=== PATIENT | male | born 1985 | race Caucasian/White ===

== ENCOUNTER 2021-07-21 11:56 | Emergency (ER) | payer SELFPAY ==
[2021-07-21 12:02] VITALS: BP 144/98; PULSE 101; RESP 16; TEMP 36.6; O2SAT 98
--- NOTE | 2021-07-21 12:02 | ED.SKABFB ---
HPI - Skin/Abscess/Foreign Bdy General Chief complaint: Skin/Abscess/Foreign Body Stated complaint: cyst on neck Time Seen by Provider: 07/21/21 12:00 Source: patient and RN notes reviewed History of Present Illness HPI narrative: Patient is a 36-year-old male who presents the urgent care with complaints of a recurrent cyst on the neck. Patient states that it started to inflamed 2 weeks ago and is now painful with eating. Patient states that he saw specialist in the past and they told him that it was infection if it becomes swollen and inflamed . Patient denies any use of [id number] medication. States that it inflames approximately every 6 months. Denies of any fever, nausea or vomiting. No other acute complaints. No acute distress noted. Patient read the plan of care. Some parts of this dictation were generated by voice recognition software and may contain typographical and/or grammatical inaccuracies. Related Data Allergies Allergy/AdvReac Type Severity Reaction Status Date / Time No Known Allergies Allergy Verified 07/21/21 12:14 Review of Systems Review of Systems: CONSTITUTIONAL: Denies fever, chills, or sweats. EYES: Denies visual changes, redness, or discharge. ENT: Denies rhinorrhea, congestion, sore throat, or otalgia. CARDIOVASCULAR: Denies chest pain, palpitations, or edema. RESPIRATORY: Denies cough or dyspnea. GASTROINTESTINAL: Denies abdominal pain, nausea, vomiting, or diarrhea. GENITOURINARY: Denies dysuria or hematuria. SKIN: Reports of a recurrent cyst on the neck MUSCULOSKELETAL: Denies back pain, joint pain, or myalgia. NEUROLOGIC: Denies headache, numbness, or weakness. All other systems reviewed are negative, except as documented in HPI. PMFSH Comments At the time of my signature, I reviewed and agree with the nursing past medical, surgical, social, and family history. There is no relevant family history pertinent to the patient complaint. Exam Narrative: GENERAL: This is a well-nourished, well-developed patient, in no apparent distress. HEAD: normocephalic, atraumatic. EYES: PERRL. Sclera clear/white. Vision is grossly intact. EARS: External ears normal NOSE: External nose normal with no obvious nasal discharge, nares without redness, no rhinorrhea. THROAT: Mucous membranes moist NECK: Neck supple CARDIOVASCULAR: Regular rate and rhythm without murmurs, gallops, or rubs. RESPIRATORY: Clear to auscultation. Breath sounds equal bilaterally. No wheezes, rales, or rhonchi. SKIN: Sebaceous cyst noted to the anterior aspect of the neck with mild tenderness measuring approximately 4 x 4 cm, fluctuant NEURO: awake, alert, and oriented to person, place and time. There were no obvious focal neurologic abnormalities. EXTREMITIES: No clubbing, cyanosis, or edema. Course Course Level of Care: Express Care Visit Vital Signs Vital signs: Vital Signs Temperature 97.9 F 07/21/21 12:02 Pulse Rate 101 H 07/21/21 12:02 Respiratory Rate 16 07/21/21 12:02 Blood Pressure 144/98 H 07/21/21 12:02 Pulse Oximetry 98 07/21/21 12:02 Temperature 97.9 F 07/21/21 12:02 Pulse Rate 101 H 07/21/21 12:02 Respiratory Rate 16 07/21/21 12:02 Blood Pressure 144/98 H 07/21/21 12:02 Pulse Oximetry 98 07/21/21 12:02 Reviewed-patient is informed that they may have pre-hypertension or hypertension based on a blood pressure reading in the department. I recommend the patient call the primary care provider listed on their discharge instructions or a physician of their choice this week to arrange follow-up for further evaluation of possible pre-hypertension or hypertension. MDM - Skin/Abscess/Foreign Bdy MDM Narrative Medical decision making narrative: Educated the patient on sebaceous cyst. The majority of the time they are not infectious but the cyst does need to be removed because of its location and its recurrent inflammatory process. Advised patient to complete the antibiotic regimen as prescri
== END 2021-07-21 12:25 | disposition home or self-care (01) ==
PROVIDERS: Emergency Provider Nurse Practitioner Family
DX: L72.3 Sebaceous cyst (principal)
CPT/HCPCS: 99213; G0463

== ENCOUNTER 2023-01-19 12:35 | Emergency (ER) | payer SELFPAY ==
--- NOTE | 2023-01-19 12:36 | ED.MALEGU ---
HPI - Male Genitourinary General Chief complaint: Urogenital-Male Stated complaint: blood in urine Time Seen by Provider: 01/19/23 12:35 Source: patient Mode of arrival: ambulatory Limitations: no limitations History of Present Illness HPI Narrative: Yoseph is a 37-year-old male patient presenting to the clinic today with complaints of blood in his urine this morning. He reports no fever or chills. Denies any concern for any sexually transmitted infection. States he has not had intercourse for over 1 year. Denies penile discharge or painful ejaculation. No urgency, hesitancy, or abdominal pain. States he is just having burning with urination and noticed some blood in his urine this morning. Denies any flank pain. No history of kidney stones or prostatitis. Related Data Allergies Allergy/AdvReac Type Severity Reaction Status Date / Time No Known Allergies Allergy Verified 01/19/23 12:43 Review of Systems Review of Systems: Pertinent positives per HPI. Patient denies any fever, chills, rash, headache, visual changes, dizziness, cough, runny nose, sore throat, shortness of breath, chest pain, palpitations, nausea, vomiting, diarrhea, constipation, abdominal pain. PMFSH Comments At the time of my signature, I reviewed and agree with the nursing past medical, surgical, social, and family history. There is no relevant family history pertinent to the patient complaint. Exam Narrative: General: Well-developed, well nourished, in no apparent distress. Head: Normocephalic, atraumatic. Cardio: Regular rate and rhythm, s1 and s2 normal, no murmur appreciated. Resp: Clear to auscultation bilaterally, no rhonchi, rales, wheezing or rubs. Abdomen: Soft, pliable, bowel sounds present in all quadrants, non-tender to palpation, no organomegly, no CVAT tenderness. Course Course Emergency Course: Portions of this record may have been created with voice recognition software. Level of Care: Express Care Visit Vital Signs Vital signs: Vital signs reviewed MDM - Male Genitourinary MDM Narrative Medical decision making narrative: At the time of visit patient is resting comfortably on the exam table. Urinalysis was performed and shows a trace of protein otherwise normal. I suspect patient has dysuria possibly from concentrated urine. Supportive measures were discussed with the patient he voiced understanding discharge instructions agrees to treatment plan. We will send urine for culture. Differential Diagnosis Differential diagnosis: Likely urinary tract infection, urethritis, epididymitis, prostatitis, inguinal hernia and other (Sexually transmitted infection, dehydration) Discharge Plan Discharge Clinical Impression: Dysuria Patient Disposition: Home, Self-Care Condition: Stable Instructions: Antibiotic Form, Dysuria (ED) Additional Instructions: UA shows 1+ protein but does not show any sign of infection or blood. We will send for culture Increase fluids and stay well hydrated Avoid tub baths If sexually active- pee before and after intercourse. Wear cotton underwear Avoid tight clothing up against the genitals Follow up with your PCP in 1 week if symptoms persist. Follow-up/Referrals: UNKNOWN,DOCTOR [Non-Staff] - Time of Disposition: 12:56 Quality NIHSS Nursing Documentation ED NIHSS nursing documentation: reviewed/agree
[2023-01-19 12:40] VITALS: BP 118/87; PULSE 93; RESP 16; TEMP 36.4; O2SAT 98
== END 2023-01-19 13:00 | disposition home or self-care (01) ==
PROVIDERS: Emergency Provider Nurse Practitioner Family
DX: R30.0 Dysuria (principal)
CPT/HCPCS: 81003; 87086; 87088; 99213; G0463

== ENCOUNTER 2023-03-06 19:00 | Emergency (ER) | payer SELFPAY ==
[2023-03-06 19:05] VITALS: BP 110/76; PULSE 100; RESP 18; TEMP 37.1; O2SAT 98
[2023-03-06 19:11] VITALS: BP 110/76; PULSE 100; RESP 18; TEMP 37.1; O2SAT 98
--- NOTE | 2023-03-06 19:13 | ED.URI ---
HPI - URI/Sore Throat General Chief Complaint: Upper Respiratory Infection Stated Complaint: cough/throat/sob History of Present Illness HPI Narrative: Patient presents with sinus congestion and pressure and cough. Cough is productive at time but no shortness of breath and no chest pain. Patient unsure if he has been running a fever and has been not been taking anything [id number] for his symptoms. Patient does report a history of asthma and is a long-time cigarette smoker of 1 pack a day. Related Data Allergies Allergy/AdvReac Type Severity Reaction Status Date / Time No Known Allergies Allergy Verified 01/19/23 12:43 Review of Systems Review of Systems: CONSTITUTIONAL: Denies chills, or sweats. Reports fever and generalized body aches EYES: Denies visual changes, redness, or discharge. ENT: Denies otalgia. Reports nasal congestion runny nose and sore throat CARDIOVASCULAR: Denies chest pain, palpitations, or edema. RESPIRATORY: Denies dyspnea. Reports occasional cough GASTROINTESTINAL: Denies abdominal pain, nausea, vomiting, or diarrhea. GENITOURINARY: Denies dysuria or hematuria. SKIN: Denies rash or itching. MUSCULOSKELETAL: Denies back pain, joint pain, or myalgia. Reports generalized body aches NEUROLOGIC: Denies headache, numbness, or weakness. PSYCHIATRIC: Denies anxiety or depression. PMFSH Comments At time of signature, agree with nursing past medical, surgical, social and family history. There is no relevant family history pertinent to the presenting complaint Exam Narrative: The patient is a well-developed, well-nourished in no acute distress. SKIN: Skin is warm and dry without erythema, swelling or exudate. There is good turgor. No tenting. HEAD: Atraumatic. Normocephalic. No temporal or scalp tenderness. EYES: Moist and bright. Sclera and conjunctivae normal. No discharge. PERRLA. Extraocular motions intact. Gross visual acuity intact. EARS: Pinna is normal shape and contour. Clear external auditory canals. TM pearly johnson with good cone of light, no erythema or suppuration. Bilateral cerumen noted no gross hearing deficit. NOSE: pink, moist mucosa with good air movement. Clear rhinorrhea without nasal flaring. Septum midline. Moderate maxillary sinus tenderness Mouth: moist mucous membranes. THROAT; mild erythema noted to posterior oropharynx with moderate postnasal drainage. Without exudate or ulceration.. Uvula midline. Normal movement of soft palate. NECK: Supple and nontender with full range of motion without discomfort. No meningeal signs. LUNGS: Equal and bilateral breath sounds with wheezes and rhonchi. No respiratory distress CHEST: The chest wall is without retractions or use of accessory muscles. HEART: Has a regular rate and rhythm without murmur, gallops, click or rub. ABDOMEN: Soft, nontender with positive active bowel sounds. No rebound tenderness. EXTREMITIES: Without cyanosis, clubbing or edema. Equal 2+ distal pulses and 2 second capillary refill noted. NEUROLOGIC: alert, active, . The patient moves all extremities with normal muscle strength. Normal muscle tone is noted. Normal coordination is noted. NO focal neurological findings noted. Course Course Level of Care: Express Care Visit Vital Signs Vital signs: Vital Signs Temperature 37.1 C 03/06/23 19:05 Pulse Rate 100 03/06/23 19:05 Respiratory Rate 18 03/06/23 19:05 Blood Pressure 110/76 03/06/23 19:05 Pulse Oximetry 98 03/06/23 19:05 Oxygen Delivery Room Air 03/06/23 19:05 Temperature 37.1 C 03/06/23 19:11 Pulse Rate 100 03/06/23 19:11 Respiratory Rate 18 03/06/23 19:11 Blood Pressure 110/76 03/06/23 19:11 Pulse Oximetry 98 03/06/23 19:11 Oxygen Delivery Room Air 03/06/23 19:11 Discharge Plan Discharge Clinical Impression: Bronchitis, Sinusitis, acute maxillary Patient Disposition: Home, Self-Care Condition: Stable Instructions: Antibiotic Form, Acut
== END 2023-03-06 19:20 | disposition home or self-care (01) ==
PROVIDERS: Emergency Provider Nurse Practitioner Family
DX: J40 Bronchitis, not specified as acute or chronic (principal); J01.00 Acute maxillary sinusitis, unspecified; F17.210 Nicotine dependence, cigarettes, uncomplicated
CPT/HCPCS: 99213; G0463

== ENCOUNTER 2023-05-12 08:44 | Emergency (ER) | payer BC, SELFPAY ==
[2023-05-12 08:49] VITALS: BP 115/99; PULSE 100; RESP 20; TEMP 37.2; O2SAT 97
--- NOTE | 2023-05-12 08:50 | ED.URI ---
HPI - URI/Sore Throat General Chief Complaint: Upper Respiratory Infection Stated Complaint: cough/sob Source: patient and RN notes reviewed Mode of arrival: ambulatory Limitations: no limitations History of Present Illness HPI Narrative: Patient is a 38-year-old male who complains of ongoing cough and intermittent wheezing. Patient states that the wheezing increases when he lays down. Patient states that he was seen here on March 06 and diagnosed with bronchitis. Patient states that he has had an ongoing cough since that time. The cough is productive with green and white sputum. He also reports ongoing nasal congestion and drainage since that time. He denies recent fevers. Denies chest pain or shortness of breath at this time. He reports history of asthma and states that he is a daily smoker. He states that he has no medications for his asthma as he does not currently have a primary care physician. His respirations are unlabored at this time. He does not appear in any acute distress. Related Data Allergies Allergy/AdvReac Type Severity Reaction Status Date / Time No Known Allergies Allergy Verified 05/12/23 09:07 Review of Systems Review of Systems: CONSTITUTIONAL: Denies fever, chills, or sweats. EYES: Denies visual changes, redness, or discharge. ENT: Denies otalgia and sore throat. Reports nasal congestion and drainage. CARDIOVASCULAR: Denies chest pain, palpitations, or edema. RESPIRATORY: Reports cough and wheezing. GASTROINTESTINAL: Denies abdominal pain, nausea, vomiting, or diarrhea. GENITOURINARY: Denies dysuria or hematuria. SKIN: Denies rash or itching. MUSCULOSKELETAL: Denies back pain, joint pain, or myalgia. NEUROLOGIC: Denies headache, numbness, or weakness. Pertinent positives per HPI. PMFSH Comments At the time of my signature, I reviewed and agree with the nursing past medical, surgical, social, and family history. There is no relevant family history pertinent to the patient complaint. Exam Narrative: GENERAL: This is a well-nourished, well-developed patient, in no apparent distress. HEAD: normocephalic, atraumatic. EYES: Sclera clear/white. Vision is grossly intact. EARS: External ears normal.. Hearing grossly intact. NOSE: External nose normal. Moderate congestion THROAT: Mucous membranes moist, posterior pharynx clear. NECK: Neck supple, non-tender without lymphadenopathy, masses or thyromegaly. CARDIOVASCULAR: Regular rate and rhythm without murmurs, gallops, or rubs. RESPIRATORY: Diffuse bilateral wheezes with expiration. GASTROINTESTINAL: Abdomen soft, non-tender, nondistended. Bowel sounds are active. No hepato-splenomegaly, or palpable masses. No guarding. SKIN: warm, intact with no suspicious lesions or rash, good texture and turgor. NEURO: awake, alert, and oriented to person, place and time. There were no obvious focal neurologic abnormalities. Course Course Level of Care: Express Care Visit Vital Signs Vital signs: Vital Signs Temperature 98.9 F 05/12/23 08:49 Pulse Rate 100 05/12/23 08:49 Respiratory Rate 20 05/12/23 08:49 Blood Pressure 115/99 H 05/12/23 08:49 Pulse Oximetry 97 05/12/23 08:49 Oxygen Delivery Room Air 05/12/23 08:49 Temperature 98.9 F 05/12/23 08:49 Pulse Rate 100 05/12/23 08:49 Respiratory Rate 20 05/12/23 08:49 Blood Pressure 115/99 H 05/12/23 08:49 Pulse Oximetry 97 05/12/23 08:49 Oxygen Delivery Room Air 05/12/23 08:49 Reviewed MDM - URI/Sore Throat MDM Narrative Medical decision making narrative: Do not smoke. Avoid smoke of any kind. May use a humidifier in the bedroom. Get plenty of fluids and rest. Take steroids as directed. Use your inhaler every 4-6 hours if needed. Follow up with your MD in 2-5 days. Go to the ER with any new or worsening symptoms. Go to the ER for any new or worsening symptoms. Avoid smoking/second-hand smoke. Continue to take Tylenol or Motrin for
== END 2023-05-12 09:10 | disposition home or self-care (01) ==
PROVIDERS: Emergency Provider Nurse Practitioner
DX: J45.21 Mild intermittent asthma with (acute) exacerbation (principal); J01.90 Acute sinusitis, unspecified
CPT/HCPCS: 99213; G0463

== ENCOUNTER 2023-05-13 18:21 | Emergency (ER) | payer BC, SELFPAY ==
[2023-05-13 18:26] VITALS: BP 138/97; PULSE 62; RESP 16; TEMP 36.7; O2SAT 99
--- NOTE | 2023-05-13 18:31 | ED.URI ---
HPI - URI/Sore Throat General Chief Complaint: Upper Respiratory Infection Stated Complaint: Dizziness/Vomiting Time Seen by Provider: 05/13/23 18:45 Source: patient, RN notes reviewed and old records reviewed Mode of arrival: ambulatory Limitations: no limitations History of Present Illness HPI Narrative: 38-year-old male who presents Express Care with complaints of dizziness at work today and boss wants him to get checked out. Patien reports that he was seen yesterday in clinic ad diagnosed with asthma exacerbation. Patient states that he was seen about a month ago and treated for Bronchitis but never completely got well. Patient states that he has used his inhaler about 10 times today because of his cough and congestion and tightness of chest.Patient denies any fevers chills or sweats, denies any body aches. states that he has not smoked any cigarettes today. MD elicited complaint: cough and other (Dizziness) Pertinent past history: asthma Description of mucous: clear and green Exacerbating factors: exertion Treatments prior to arrival: other (inhaler, ) Related Data Allergies Allergy/AdvReac Type Severity Reaction Status Date / Time No Known Allergies Allergy Verified 05/13/23 18:24 Review of Systems Review of Systems: CONSTITUTIONAL: Denies malaise, chills, sweats, or fever. EYES: Denies visual changes, redness, or discharge. ENT: Reports rhinorrhea, congestion, sinus pain, no otalgia and no sore throat. CARDIOVASCULAR: Denies chest pain, palpitations, or edema. RESPIRATORY: Reports cough.? Denies dyspnea, reports tightness in chest with breathing. GASTROINTESTINAL: Denies abdominal pain, nausea, vomiting, diarrhea SKIN: Denies rash or itching. MUSCULOSKELETAL: Denies myalgia. NEUROLOGIC: Denies headache.states dizziness All systems reviewed & are unremarkable except as noted in HPI and below PMFSH Past Medical History Medical History (Updated 05/15/23 @ 10:24 by Lianet Junior NP) Asthma Bronchitis Social History Social History (Updated 05/15/23 @ 10:25 by Lianet Junior NP) Smoking packs per day: 0.5 Smoking cigarettes per day: 10.0 Smoking status: Current every day smoker Tobacco type: cigarettes Alcohol intake: current Alcohol use details: social Substance use type: does not use Comments At time of signature, agree with nursing past medical, surgical, social and family history. There is no relevant family history pertinent to the presenting complaint Exam Narrative: GENERAL: Well-appearing, well-nourished, and in no acute distress. HEAD: Normocephalic EYES: PERRLA, conjunctivae clear ENT: Nares clear, turbinates edematous and erythematous, clear-light yellow discharge. Mucous membranes moist. TM pearly [place] with dull light reflex bilaterally; no tragal tenderness. Oropharynx erythematous without lesions. Tonsils not enlarged and without exudate, no drooling, no hoarseness, no trismus, uvula midline.post nasal drainage NECK: Supple. No lymphadenopathy CHEST: Coarse scattered wheezing on auscultation, breath sounds equal. Positive for wheezing, no rhonchi, rales, or stridor. No respiratory distress, speaks in full sentences.SAO2 99% on room air HEART: Regular rate and rhythm. No murmur heard. SKIN: Warm, dry, no rash. NEURO: Alert and oriented x3. PSYCH: Normal mood and affect Course Course Emergency Course: Patient is aware of diagnosis, understands and agrees to treatment plan.? Anticipatory guidance given.? Patient agrees to follow-up as directed and is aware of reasons to seek care at the emergency department. Portions of this record may have been created with voice recognition software Level of Care: Express Care Visit Vital Signs Vital signs: Vital Signs Temperature 36.7 C 05/13/23 18:26 Pulse Rate 62 05/13/23 18:26 Respiratory Rate 16 05/13/23 18:26 Blood Pressure 138/97 H 05/13/23 18:26 Pulse Oximetry 99 12/0
== END 2023-05-13 19:11 | disposition home or self-care (01) ==
PROVIDERS: Emergency Provider Registered Nurse
DX: R42 Dizziness and giddiness (principal); R05.9 Cough, unspecified; F17.210 Nicotine dependence, cigarettes, uncomplicated
CPT/HCPCS: 99211; G0463